=== PATIENT | female | born 1935 | race African-American/Black ===

== ENCOUNTER 2017-02-26 22:10 | Emergency (ER) | payer OTHER, MEDICAID ==
[~2017-02-26] VITALS: Ht 177.8 cm; Wt 65.9 kg
[2017-02-27] MEDS ORDERED: ACETAMINOPHEN 325MG TABLET PO ONE (03:00)
[2017-02-27 03:48] VITALS: BP 137/81
== END 2017-02-27 04:53 | disposition home or self-care (01) ==
LOC: ER 22:12
DX: S30.0XXA Contusion of lower back and pelvis, initial encounter (principal); S00.83XA Contusion of other part of head, initial encounter; M48.57XA Collapsed vertebra, not elsewhere classified, lumbosacral region, initial encounter for fracture; V49.59XA Passenger injured in collision with other motor vehicles in traffic accident, initial encounter; Y93.89 Activity, other specified; Y92.410 Unspecified street and highway as the place of occurrence of the external cause; I10 Essential (primary) hypertension; F17.210 Nicotine dependence, cigarettes, uncomplicated
CPT/HCPCS: 70100; 72100; 99284